=== PATIENT | male | born 2005 | race Caucasian/White ===

== ENCOUNTER 2024-02-14 23:25 | Emergency (ER) | payer OTHER ==
[2024-02-14 23:37] VITALS: PULSE 76; O2SAT 98
== END 2024-02-15 00:12 | disposition left against medical advice (07) ==
LOC: ER 02-15 00:06
DX: R10.9 Unspecified abdominal pain (principal); Z53.21 Procedure and treatment not carried out due to patient leaving prior to being seen by health care provider